=== PATIENT | female | born 1965 | race Caucasian/White ===

== ENCOUNTER 2024-04-06 12:48 | Emergency (ER) | payer OTHER ==
[~2024-04-06] VITALS: Ht 154.9 cm; Wt 49.9 kg
[2024-04-06] MEDS ORDERED: ACETAMINOPHEN ES 500 MG TABLET ONE (13:29)
[2024-04-06] MEDS ORDERED: FAMOTIDINE (20 MG) 20 MG TABLET ONE (13:29)
[2024-04-06] MEDS: FAMOTIDINE (20 MG) 20 MG TABLET PO ONE (13:30)
[2024-04-06] MEDS: ACETAMINOPHEN ES 500 MG TABLET PO ONE (13:30)
[2024-04-06 14:18] VITALS: BP 137/56; TEMP 98.5; O2SAT 95
== END 2024-04-06 14:00 | disposition home or self-care (01) ==
LOC: ER 12:50
DX: F41.9 Anxiety disorder, unspecified (principal); R00.2 Palpitations; M25.562 Pain in left knee; R10.84 Generalized abdominal pain